=== PATIENT | female | born 1960 | race Caucasian/White ===

== ENCOUNTER 2019-09-07 21:40 | Observation (INO) ==
[2019-09-07] MEDS ORDERED: Aspirin 325 MG TABLET PO ONE (22:11)
[2019-09-07] MEDS ORDERED: Nitroglycerin 0.4 MG TAB.SUBL SL PRN (22:11)
[2019-09-07 22:23] LABS: Basophils # 0.1 K/mcL (0.0-0.2); Basophils % 0.9 %; Eosinophils # 0.3 K/mcL (0.0-0.6); Eosinophils % 3.5 %; Hematocrit 42.2 % (35.3-44.9); Hemoglobin 13.7 g/dL (11.5-15.4); Immature Granulocytes % 0.4 % (0-4); Lymphocytes # 2.7 K/mcL (0.6-4.6); Lymphocytes % 34.5 %; Mean Corpuscular HGB Conc 32.5 g/dL (31.6-35.5); Mean Corpuscular Hemoglobin 28.1 pg (28.0-33.3); Mean Corpuscular Volume 86.5 fL (83.0-100.0); Monocytes # 0.7 K/mcL (0.0-1.3); Monocytes % 9.2 %; Neutrophils # 4.1 K/mcL (1.6-8.9); Platelet Count 275 K/mcL (140-400); Red Blood Count 4.88 M/mcL (3.82-4.97); Red Cell Distribution Width 13.4 % (11.5-14.5); Segmented Neutrophils % 51.5 %; White Blood Count 7.9 K/mcL (4.3-11.1)
[2019-09-07 22:28] LABS: INR 0.9; Prothrombin Time 10.6 Seconds (9.4-12.1)
[2019-09-07 22:30] LABS: Activated Partial Thrombo Time 34.4 Seconds (26.0-36.0)
[2019-09-07 22:57] LABS: BUN/Creatinine Ratio 15 (6-26); Blood Urea Nitrogen 10 mg/dL (6-20); Calcium 9.1 mg/dL (8.6-10.3); Carbon Dioxide 27 mEq/L (23-29); Chloride 105 mEq/L (98-107); Glucose 112 mg/dL (70-105); Osmolality,Calculated 290 (280-300); Potassium 3.4 mEq/L (3.5-5.1); Sodium 140 mEq/L (136-145); Troponin I < 0.03 ng/mL (< 0.04); eGFR For African Americans > 60 (> 60); eGFR For Non-African Americans > 60 (> 60)
[2019-09-08] MEDS ORDERED: Acetaminophen 325 MG TABLET PO PRN (00:35)
[2019-09-08] MEDS ORDERED: *HR* Promethazine 25 MG/ML VIAL IVP PRN (00:35)
[2019-09-08] MEDS ORDERED: Mag Hydrox/Al Hydrox/Simeth 30 ML UDC PO PRN (00:35)
[2019-09-08] MEDS ORDERED: Naloxone 0.4 MG/ML INJ IVP PRN (00:35)
[2019-09-08] MEDS ORDERED: Morphine Sulfate 2 MG/ML SYRINGE IVP PRN (00:37)
[2019-09-08] MEDS: lisinopriL 5 MG TABLET PO SCH ×2 (01:16→12:34)
[2019-09-08 01:55] LABS: Albumin 3.9 g/dL (3.5-5.7); Albumin/Globulin Ratio 1.3 (1.1-2.2); Bilirubin,Indirect 0.3 mg/dL (0.0-1.0); Bilirubin,Total 0.3 mg/dL (0.3-1.0); Globulin 2.9 g/dL (2.4-3.5); Total Protein 6.8 g/dL (6.4-8.9)
[2019-09-08 01:56] LABS: BUN/Creatinine Ratio 16 (6-26); Blood Urea Nitrogen 10 mg/dL (6-20); Calcium 8.9 mg/dL (8.6-10.3); Carbon Dioxide 25 mEq/L (23-29); Chloride 107 mEq/L (98-107); Chol/HDL Ratio 4.5 (0-4.9); Cholesterol 236 mg/dL (< 200); Glucose 114 mg/dL (70-105); HDL Cholesterol 52 mg/dL (40-59); LDL Cholesterol,Calculated 139 mg/dL (0-99); Magnesium 2.1 mg/dL (1.6-2.6); Osmolality,Calculated 288 (280-300); Sodium 139 mEq/L (136-145); Triglycerides 227 mg/dL (< 150); eGFR For African Americans > 60 (> 60); eGFR For Non-African Americans > 60 (> 60)
[2019-09-08] MEDS ORDERED: *HR* Heparin 5,000 UNIT/ML VIAL SQ SCH (06:00)
[2019-09-08 07:07] VITALS: BP 138/79
[2019-09-08] MEDS ORDERED: Regadenoson 0.4 MG/5 ML SYRINGE IVP ONE (08:10)
[2019-09-08] MEDS ORDERED: Aspirin 81 MG TAB.CHEW PO SCH (09:00)
[2019-09-08] MEDS ORDERED: Loratadine 10 MG TABLET PO SCH (09:00)
== END 2019-09-08 15:06 | disposition home or self-care (01) ==
LOC: EMEROOARM 21:40 → 3BNU 21:40
PROVIDERS: ADMIT Family Medicine; ATTEND Family Medicine

== ENCOUNTER 2020-11-20 16:43 | Observation (INO) ==
[2020-11-20] MEDS ORDERED: 0.9 % Sodium Chloride 1,000 ML IVC ONE (17:20)
[2020-11-20] MEDS ORDERED: *HR* FentaNYL (PF) 100 MCG/2 ML VIAL IVP ONE (17:20)
[2020-11-20] MEDS ORDERED: Isovue-370 500 ML BOTTLE IVP ONE (17:20)
[2020-11-20] MEDS ORDERED: Ondansetron 4 MG/2 ML VIAL IVP ONE (17:20)
[2020-11-20 17:45] LABS: Basophils # 0.1 K/mcL (0.0-0.2); Basophils % 0.7 %; Eosinophils # 0.1 K/mcL (0.0-0.6); Eosinophils % 0.9 %; Hematocrit 42.8 % (35.3-44.9); Immature Granulocytes % 0.4 % (0-4); Lymphocytes # 1.9 K/mcL (0.6-4.6); Lymphocytes % 13.8 %; Mean Corpuscular HGB Conc 32.7 g/dL (31.6-35.5); Mean Corpuscular Hemoglobin 28.1 pg (28.0-33.3); Mean Corpuscular Volume 85.9 fL (83.0-100.0); Mean Platelet Volume 9.9 fL (9.4-12.4); Monocytes # 0.9 K/mcL (0.0-1.3); Monocytes % 6.4 %; Neutrophils # 10.5 K/mcL (1.6-8.9); Platelet Count 303 K/mcL (140-400); Red Blood Count 4.98 M/mcL (3.82-4.97); Red Cell Distribution Width 13.6 % (11.5-14.5); Segmented Neutrophils % 77.8 %; White Blood Count 13.4 K/mcL (4.3-11.1)
[2020-11-20 17:54] LABS: Bacteria,Urine Few per hpf (None-Few); Bilirubin,Urine Negative (Negative); Blood,Urine Small (Negative); Clarity,Urine Clear (Clear); Color,Urine Yellow (Yellow); Glucose,Urine (UA) Normal (Normal); Ketones,Urine Negative (Negative); Leukocyte Esterase,Urine Trace (Negative); Mucus,Urine Moderate per lpf (None-Few); Nitrite,Urine Negative (Negative); Protein,Urine 50 mg/dL (Neg-Trace); Specific Gravity,Urine 1.024 (1.010-1.025); Squamous Epithelial Cell,Urine Few per hpf (None-Few); Urobilinogen,Urine Normal (Normal)
[2020-11-20 18:06] LABS: Alanine Aminotransferase 12 Units/L (7-52); Albumin 4.3 g/dL (3.5-5.7); Albumin/Globulin Ratio 1.3 (1.1-2.2); Alkaline Phosphatase 116 Units/L (34-104); Aspartate Amino Transferase 25 Units/L (13-39); BUN/Creatinine Ratio 12 (6-26); Bilirubin,Direct 0.1 mg/dL (0.0-0.2); Bilirubin,Indirect 0.5 mg/dL (0.0-1.0); Bilirubin,Total 0.6 mg/dL (0.3-1.0); Blood Urea Nitrogen 9 mg/dL (8-23); Calcium 9.1 mg/dL (8.6-10.3); Carbon Dioxide 25 mEq/L (23-29); Chloride 103 mEq/L (98-107); Globulin 3.4 g/dL (2.4-3.5); Glucose 117 mg/dL (70-105); Lipase 40 Units/L (11-82); Osmolality,Calculated 286 (280-300); Sodium 138 mEq/L (136-145); Total Protein 7.7 g/dL (6.4-8.9); eGFR For African Americans > 60 (> 60); eGFR For Non-African Americans > 60 (> 60)
[2020-11-20] MEDS ORDERED: Piperacillin/Tazobactam 3.375 GM in 0.9 % Sodium Chloride Mini Bag 100 ML IVPB ONE (20:03)
[2020-11-20] MEDS ORDERED: Acetaminophen 325 MG TABLET PO PRN (20:36)
[2020-11-20] MEDS ORDERED: Naloxone 0.4 MG/ML INJ IVP PRN (20:36)
[2020-11-20] MEDS ORDERED: Ondansetron 4 MG/2 ML VIAL IVP PRN (20:36)
[2020-11-20] MEDS: Ringers Solution, Lactated 1,000 ML IVC SCH (22:33)
[2020-11-21 01:51] LABS: Basophils # 0.1 K/mcL (0.0-0.2); Basophils % 0.5 %; Eosinophils % 0.1 %; Hematocrit 38.8 % (35.3-44.9); Hemoglobin 12.7 g/dL (11.5-15.4); Immature Granulocytes % 0.2 % (0-4); Lymphocytes # 1.3 K/mcL (0.6-4.6); Mean Corpuscular HGB Conc 32.7 g/dL (31.6-35.5); Mean Corpuscular Hemoglobin 28.3 pg (28.0-33.3); Mean Corpuscular Volume 86.4 fL (83.0-100.0); Monocytes # 0.5 K/mcL (0.0-1.3); Monocytes % 4.5 %; Neutrophils # 8.9 K/mcL (1.6-8.9); Platelet Count 260 K/mcL (140-400); Red Blood Count 4.49 M/mcL (3.82-4.97); Red Cell Distribution Width 13.4 % (11.5-14.5); Segmented Neutrophils % 82.7 %; White Blood Count 10.8 K/mcL (4.3-11.1)
[2020-11-21 01:57] LABS: INR 1.2; Prothrombin Time 13.9 Seconds (9.4-12.1)
[2020-11-21 02:14] LABS: BUN/Creatinine Ratio 12 (6-26); Blood Urea Nitrogen 7 mg/dL (8-23); Calcium 8.7 mg/dL (8.6-10.3); Carbon Dioxide 21 mEq/L (23-29); Chloride 109 mEq/L (98-107); Glucose 136 mg/dL (70-105); Magnesium 2.1 mg/dL (1.6-2.6); Osmolality,Calculated 288 (280-300); Sodium 139 mEq/L (136-145); eGFR For African Americans > 60 (> 60); eGFR For Non-African Americans > 60 (> 60)
[2020-11-21] MEDS: Ringers Solution, Lactated 1,000 ML IVC SCH (05:54)
[2020-11-21 07:20] VITALS: BP 131/71; PULSE 76; TEMP 97.4; O2SAT 95
[2020-11-21] MEDS ORDERED: Piperacillin/Tazobactam 3.375 GM in 0.9 % Sodium Chloride Mini Bag 100 ML IVPB SCH (08:00)
[2020-11-21] MEDS ORDERED: lisinopriL 20 MG TABLET PO SCH (09:00)
== END 2020-11-21 13:02 | disposition home or self-care (01) ==
LOC: 3ANU 16:43 → EMEROOARM 16:43 → SUATTDRO 20:38 → 3BNU 21:19
PROVIDERS: ADMIT Student in an Organized Health Care Education/Training Program; ATTEND Internal Medicine